=== PATIENT | female | born 1970 ===

== ENCOUNTER 2022-12-30 08:09 | Day surgery (SDC) | payer OTHER ==
[2022-12-28 11:04] VITALS: BMI 20.7
[2022-12-30 08:33] VITALS: RESP 18
[2022-12-30 09:10] VITALS: PULSE 61; TEMP 97.8
[2022-12-30 09:29] VITALS: BP 105/63
== END 2022-12-30 10:24 | disposition home or self-care (01) ==
LOC: FASU-ENDO 08:09
PROVIDERS: ATTEND Internal Medicine Gastroenterology
PROC: 0DJD8ZZ Inspection of Lower Intestinal Tract, Via Natural or Artificial Opening Endoscopic (ICD-10-PCS; principal; 2022-12-30 08:44)
DX: Z12.11 Encounter for screening for malignant neoplasm of colon (principal)